=== PATIENT | male | born 1955 | race African-American/Black ===

== ENCOUNTER → 2016-07-24 | Outpatient (CLI) | payer OTHER ==
[~2016-07-24] MED LIST: DIAZ-165 PO
--- NOTE | 2016-07-24 16:10 | DIAGNOSTIC IMAGING REPORT ---
MRI OF THE LEFT SHOULDER CLINICAL HISTORY: Left shoulder pain. COMPARISON STUDY: No priors. TECHNIQUE: MRI of the left shoulder was performed utilizing various T1 and T2 weighted sequences in the axial, sagittal, coronal planes. IV contrast was not administered for this examination. The examination is degraded by motion artifact. Note that interpretation is suboptimal without plain film correlate. FINDINGS: Rotator cuff: There is full-thickness rupture of the supraspinatous and intraspinous tendons with at least 3.5 to 4 cm of associated musculotendinous retraction and superior subluxation of the humeral head. There is tendinopathy with mild partial thickness tearing of the subscapularis tendon. The subscapularis tendon is largely intact, as is the teres minor. There is subacromial and subdeltoid bursal fluid. Advanced productive degenerative change is identified at the acromioclavicular joint. Biceps tendon: There is tendinopathy and partial-thickness tearing of the long head of the biceps tendon. The majority of the fibers remain intact and the tendon is located within the bicipital groove. The anchor is maintained. Labrum: There is a circumferential labral tear. Shoulder joint: There is a lower joint effusion. Numerous joint bodies are identified. The articular cartilage over the glenoid is well maintained. There is no evidence of fracture. There is a large degenerative geode in the greater tuberosity of the humeral head. Musculature and soft tissues: The supraspinatus and infraspinatus muscles are atrophic. No significant intramuscular edema is identified. IMPRESSION: 1. There is tendinopathy with full-thickness rupture and retraction of the supraspinatous and intraspinous tendons as above. 2. There is associated superior subluxation of the humeral head. 3. Circumferential labral tear. 4. Large joint effusion with numerous joint bodies. 5. There is mild partial tearing is tearing involving the subscapularis and long head of the biceps tendons. 6. There is significant muscular atrophy of supraspinatus and infraspinatus. Electronically signed by: Vasquez Licona M.D. 07/24/2016 4:07 PM Dictated Date/Time: 07/24/2016 4:01 PM
== END | disposition home or self-care (01) ==
LOC: C.MRIBC 14:53
PROVIDERS: ATTEND Orthopaedic Surgery
DX: M25.512 Pain in left shoulder (principal)